=== PATIENT | male | born 1975 | race Caucasian/White ===

== ENCOUNTER 2020-11-09 15:30 | Emergency (ER) | payer OTHER, SELFPAY ==
[2020-11-09 15:34] VITALS: BP 136/91; PULSE 75; RESP 99; TEMP 36.4; O2SAT 99
--- NOTE | 2020-11-09 15:45 | DI.RAD_ITS ---
EXAM: XR THUMB LT EXAM DATE/TIME: CLINICAL HISTORY: distal table saw injury, pain. TECHNIQUE: 2D digital imaging was performed. COMPARISON: None. FINDINGS: BONES: No acute fracture is present. No bony destructive lesion is seen. JOINTS: No dislocation present. SOFT TISSUE: There does appear to be a laceration at the tip of the thumb. No radiopaque foreign bod ies are identified. IMPRESSION: No evidence of acute fracture, dislocation, or subluxation. DATA REPOSITORY: RADIATION DOSE DELIVERED:
--- NOTE | 2020-11-09 15:48 | ED.GENADUL_ITS ---
Discharge Plan Disposition Patient Disposition: HOME Condition: Improving Discharge Details Clinical Impression: Avulsion of skin of thumb Primary Care Provider: None,None ED Provider: Harish Chaudhary Home Meds and New Rx's Prescriptions: New cephalexin 500 mg capsule 500 mg PO TID 7 Days Qty: 21 RF: 0 Discharge Instructions Instructions: Skin Avulsion (ED) Additional Instructions: Leave current dressing in place for 5 days. Take antibiotics as prescribed Return if develop a fever, foul-smelling drainage from the wound, or any other acute concerns. If not healing in 10 days, you may follow-up in orthopedic clinic. The office #[id number]. Tylenol and/or ibuprofen as needed for pain. Medical Decision Making 45-year-old male was pushing wood through a table saw when his left thumb contacted the blade and he had avulsion/deep abrasion to the distal palmar aspect. No motor weakness, no numbness, two-point discrimination is intact. After examination, patient was consented and then anesthetized with a digital block. He is referred for x-ray to rule out underlying bony injury. The wound was liberally irrigated and examined in a bloodless field. Patient's tetanus was updated. X-ray: No significant bony involvement. This is not amenable to suture repair. Dressed with Xeroform, Kerlix, with a splint for comfort only. Offered to have him follow-up with orthopedics. He will also be referred to establish local primary care. HPI General Mode of arrival: ambulatory . Date/Time Provider Initiated Documentation: 11/09/20 15:32 . Limitations to Documentation: no limitations . Information obtained by: patient . History of Present Illness 45 year old M presents to the emergency department with the chief complaint of Left thumb injury, described as moderate, Quality is described as constant, and is localized to the left and upper extremity. Patient reports no radiation. Patient started experiencing this minute(s) and it has been constant. No relieving factors improve symptom(s), No exacerbating factors reported . Patient notes denies fever/chills and weakness. Patient did receive the following treatments prior to arrival, none Related Data Home Medications Medication Instructions Recorded Confirmed cephalexin 500 mg PO TID 7 Days #21 cap 11/09/20 Previous Rx's Medication Instructions Recorded cephalexin 500 mg PO TID 7 Days #21 cap 11/09/20 Allergies Allergy/AdvReac Type Severity Reaction Status Date / Time No Known Allergies Allergy Unverified 11/09/20 15:37 General Stated Complaint: Laceration GEE: 3 Review of Systems Narrative: 6 systems reviewed and otherwise negative. Tetanus out of date. [facility] Social History Smoking/Tobacco Use Status: Never Smoking risk assessment performed?: Yes Alcohol Intake: never Substance use type: does not use Do you feel safe at home: Yes Do you feel safe in your relationship?: Yes Exam Narrative Exam Narrative: GEN: awake, alert, oriented 3. Pleasant, well groomed, int eractive. HEAD: Normocephalic, atraumatic EYES: PERRL, EOMI NECK: Full ROM,no mass CHEST/RESP: No respiratory distress EXT: Full ROM, no edema, no rash. The left thumb has a distal abrasion/avulsion primarily on the palmar surface. Normal motor, two-point discrimination is intact at approximately 1 cm. No anesthesia Neuro: Grossly normal neurologic exam, conversant, interactive. Psych: Speech fluent, thoughts congruent, affect normal Course Vital Signs Vital signs: Vital Signs Temperature 36.4 C L 11/09/20 15:34 Pulse 75 11/09/20 15:34 Respiratory Rate 99 H 11/09/20 15:34 Blood Pressure 136/91 H 11/09/20 15:34 Pulse Oximetry 99 11/09/20 15:34 Temperature 36.4 C L 11/09/20 15:34 Temperature Source Skin 11/09/20 15:34 Pulse 75 11/09/20 15:34 Respiratory Rate 99 H 11/09/20 15:34 Respiratory Effort Non-Labored 11/09/20 15:39 Blood Pressure 136/91 H 11/09/20 15:34 Blood Pressure Position Sitting 11/09/20 15:34 Pulse Oximetry 99 11/09/20 15:34 Oxygen Delivery Method Room Air 11/09/20 15:34 Oxygen Flow Rate 0 11/09/20 15:34 Pain Level 7 11/09/20 15:34
--- NOTE | 2020-11-09 15:54 | NUR.NOTE ---
Nursing Note: Referral given to Care Management to establish care with PCP and routine follow up. Joaquina Weston
[2020-11-09] MEDS: Bupivacaine 0.5% Pres-Free 30 ML VIAL IJ (16:22)
--- NOTE | 2020-11-09 16:29 | DI.VRAD_ITS ---
PROCEDURE INFORMATION: Exam: XR Left Finger(s) Exam date and time: 11/09/2020 4:08 PM Age: 45 years old Clinical indication: Injury or trauma; Laceration; Finger; Left; Thumb; Patient HX: Distal table saw injury TECHNIQUE: Imaging protocol: XR Left fingers. Views: Minimum 2 views. COMPARISON: No relevant prior studies available. FINDINGS: Bones/joints: Normal. Soft tissues: Evidence of laceration of the thumb. IMPRESSION: 1. No acute fracture or dislocation. 2. Soft tissue laceration. Dictated and Authenticated by: Jer Oliveira MD. Ordering:JERSON Moreira MD
[2020-11-09] MEDS: Acetaminophen 500 MG TAB 1000 MG PO (16:32)
[2020-11-09] MEDS: Cephalexin 500 MG CAP, 2 CAPS/BTL PO (16:33)
--- NOTE | 2020-11-10 10:37 | NUR.NOTE ---
Russel called to verify prescription. TID was crossed out and BID written in with initials, qty was not changed. No indication in chart as to change. Dr Agarwal spoke to pharmacist and changed to BID.
== END 2020-11-09 16:38 | disposition home or self-care (01) ==
PROVIDERS: Emergency Provider Emergency Medicine
DX: S61.012A Laceration without foreign body of left thumb without damage to nail, initial encounter (principal); W31.2XXA Contact with powered woodworking and forming machines, initial encounter
CPT/HCPCS: 90471; 99284; 73140; 99283

== ENCOUNTER 2023-09-02 16:30 | Outpatient (REF) | payer OTHER, SELFPAY ==
[2023-09-02 16:36] LABS: HGB 14.5 g/dL (13.5-17.5); MCH 31.2 pg (27.0-33.0); MCHC 33.7 % (32.0-36.0); MCV 93 fL (80-95); Platelet Count 265 10^3/uL (130-400); RBC 4.65 10^6/uL (4.36-5.78); RDW 12.9 % (11.8-14.1); RDW-SD 44.1 fL; WBC 5.27 10^3/uL (4.4-10.8)
[2023-09-02 16:59] LABS: ALT 41 U/L (16-63); AST 21 U/L (15-37); Albumin 4.1 g/dL (3.4-5.0); Alkaline Phosphatase 67 U/L (46-116); Anion Gap 8.4 mmol/L (3-11); BUN 15 mg/dL (7-18); Bilirubin, Total 0.5 mg/dL (0.2-1.0); CO2 28.6 mmol/L (21.0-32.0); CREATININE 1.1 mg/dL (0.70-1.30); Calcium 8.8 mg/dL (8.5-10.1); Calculated LDL 146 mg/dL (<100); Chloride 105 mmol/L (98-107); Cholesterol 223 mg/dL (<200); Estimated GFR 82.29 (mL/min/1.73m2); Glucose 121 mg/dL (74-106); HDL Cholesterol 52 mg/dL (40-60); Potassium 4.4 mmol/L (3.5-5.1); Sodium 142 mmol/L (136-145); TSH (W/Ref FT4) 1.22 uIU/mL (0.36-3.74); Total Protein 7.1 g/dL (6.4-8.2); Triglyceride 127 mg/dL (<150)
== END 2023-09-02 16:31 | disposition home or self-care (01) ==
LOC: NCHCN 16:30
PROVIDERS: Visit Provider Family Medicine
DX: Z00.00 Encounter for general adult medical examination without abnormal findings (principal); E78.1 Pure hyperglyceridemia; E03.9 Hypothyroidism, unspecified; R73.09 Other abnormal glucose
CPT/HCPCS: 80053; 80061; 85027; 83036; 84443

== ENCOUNTER 2024-08-17 16:32 | Outpatient (REF) | payer OTHER, SELFPAY ==
[2024-08-17 16:30] LABS: Hemoglobin A1C 5.9 % (<5.7)
[2024-08-17 16:34] LABS: TSH (W/Ref FT4) 6.63 uIU/mL (0.36-3.74)
[2024-08-17 17:26] LABS: FREE T4 0.75 ng/dL (0.76-1.46)
== END 2024-08-17 16:33 | disposition home or self-care (01) ==
LOC: NCHCN 16:32
PROVIDERS: Visit Provider Family Medicine
DX: E03.9 Hypothyroidism, unspecified (principal); R73.03 Prediabetes
CPT/HCPCS: 83036; 84439; 84443

== ENCOUNTER 2025-03-22 08:57 | Outpatient (REF) | payer OTHER, SELFPAY ==
[2025-03-22 15:40] LABS: TSH 3.02 uIU/mL (0.36-3.74)
== END 2025-03-22 08:58 | disposition home or self-care (01) ==
LOC: NCHCN 08:57
PROVIDERS: PCP Family Medicine; Visit Provider Family Medicine
DX: E03.9 Hypothyroidism, unspecified (principal)
CPT/HCPCS: 84443